=== PATIENT | female | born 1975 | race Caucasian/White ===

== ENCOUNTER → 2019-06-23 | Day surgery (SDC) | payer OTHER ==
[~2019-06-23] MED LIST: ESOM40CA PO; IV RINGERS,LACTATED 1000ML 1,000 ML IV SCH; LEVO50TA5 PO; LIDOCAINE 2% PF 5 ML VIAL. ONE; PROPOFOL 40 ML IV ONE; SUCR1ORA14 PO
[2019-06-23 10:47] VITALS: BP 116/74
--- NOTE | 2019-06-24 17:06 | PATHOLOGY ---
[facility] Accession Number: [id number] . 01 Material submitted: . PART A: small bowel - SMALL BOWEL BIOPSY PART B: stomach - ANTRUM AND GASTRIC BODY BIOPSY. Modifiers: body PART C: esophagus - ESOPHAGEAL BIOPSY PART D: ileum - TERMINAL ILEUM BIOPSY PART E: colon - RIGHT COLON BIOPSY. Modifiers: right PART F: colon - LEFT COLON BIOPSY. Modifiers: left . 01 Clinical history: . Abdominal pain . 02 Diagnosis: A. Small bowel biopsies: - No significant pathologic abnormalities. . B. Gastric biopsies, gastric antrum and gastric body: - Chronic gastritis, mild to moderate. . C. Esophageal biopsies: - Segments of hyperplastic squamous esophageal mucosa and esophagogastric and gastric mucosa showing focal marked chronic inflammation and minute focus of intestinal metaplasia. . D. Terminal ileum biopsy: - No significant pathologic abnormalities. . E. Colonic mucosa, right colon biopsies: - No significant pathologic abnormalities, with few hyperplastic mucosal-associated lymphoid aggregates. . F. Colonic mucosa, left colon biopsies: - No significant pathologic abnormalities, with few focally hyperplastic mucosal-associated lymphoid aggregates. . (JPM:megan; 06/24/2019) [facility] 06/24/2019 1652 [facility] . 02 Comment: Sections of the small bowel biopsy reveal duodenal and small intestine mucosa. Where best oriented, mucosal villi show no sprue-like changes or significant inflammatory changes. . Sections of the gastric antral and gastric body biopsy show congestion and mild to moderate chronic inflammation. A properly-controlled immunoperoxidase stain for Helicobacter is negative for Helicobacter organisms. . Sections of the esophageal biopsy reveal segments of hyperplastic squamous esophageal mucosa and esophagogastric and gastric mucosa showing focal marked chronic inflammation with minute focus of intestinal metaplasia. The findings are consistent with reflux esophagitis. There is no dysplasia or evidence of malignancy. . Sections of the terminal ileum biopsy reveal segments of small intestine mucosa with focally hyperplastic mucosal-associated lymphoid tissue. Where best oriented, the villi show no sprue-like changes or significant inflammatory changes. . Sections of the right colon and left colon biopsies appear similar and reveal multiple segments of colonic mucosa containing several, focally hyperplastic mucosal-associated lymphoid aggregates. There is no evidence of a chronic destructive colitis, lymphocytic colitis, or collagenous colitis. . Special stain: Immunoperoxidase stain for Helicobacter on B1 . (JPM:mml; 06/24/2019) . 02 Electronically signed: . Dario Sun MD, Pathologist NPI- [id number] . 01 Gross description: . A. The specimen is received in formalin, labeled "Eidy Jossue, small bowel biopsy". Received are three segments of pale figueroa soft tissue ranging in size from 0.3 to 0.4 cm in maximum dimensions. The specimen is submitted entirely in cassette A1. . B. The specimen is received in formalin, labeled "Eidy Jossue, gastric antrum and body biopsy". Received are four segments of pale figueroa soft tissue ranging in size from 0.4 to 0.6 cm in maximum dimensions. The specimen is submitted entirely in cassette B1. . C. The specimen is received in formalin, labeled "Eidy Jossue, esophageal biopsy". Received are three segments of pale figueroa soft tissue ranging in size from 0.3 to 0.8 cm in maximum dimensions. The specimen is submitted entirely in cassette C1. . D. The specimen is received in formalin, labeled "Eidy Jossue, terminal ileum biopsy". Received are two segments of pale figueroa soft tissue measuring 0.4 cm each in maximum dimensions. The specimen is submitted entirely in cassette D1. . E. The specimen is received in formalin, labeled "Eidy Jossue, right colon biopsy". Received are three segments of pale figueroa soft tissue ranging in size from 0.4 to 1.0 cm in maximum dimensions. The specimen is submitted entirely in cassette E1. . F. The specimen is received in formalin, labeled "Eidy Jossue, left colon biopsy". Received are four segments of pale figueroa soft tissue ranging in size from 0.4 to 0.5 cm in maximum dimensions. The specimen is submitted entirely in cassette F1. (CAA; 06/23/2019) QAC/QAC 06/23/2019 1749 Local . 02 Pathologist provided ICD-10: K29.50, K20.9, R10.9 . 02 CPT . 021380, 308809, [id number], [id number], [id number], [id number], [id number] Specimen Comment: A courtesy copy of this report has been sent to [phone], [phone] Specimen Comment: [id number] Specimen Comment: Report sent to / DR COLLAZO Performed at: 01 [facility] [address] [facility] [address], [place] [id number] MD Keith Mitchell MD Phone: [phone] Performed at: 02 [facility] [address] [place], [place] [id number] MD Dario Sun MD Phone: [phone]
== END ==
LOC: ENDOS 09:14
PROVIDERS: ATTEND Internal Medicine Gastroenterology
DX: R10.12 Left upper quadrant pain (principal); K29.50 Unspecified chronic gastritis without bleeding; K21.0 Gastro-esophageal reflux disease with esophagitis; K63.89 Other specified diseases of intestine; K64.0 First degree hemorrhoids; E03.9 Hypothyroidism, unspecified; F15.90 Other stimulant use, unspecified, uncomplicated; Z98.890 Other specified postprocedural states
CPT/HCPCS: 43239; 45380; 81025; 88305; 88342; J2001; J2704; 45378; J3490